=== PATIENT | female | born 1960 | race Caucasian/White ===

== ENCOUNTER 2023-09-02 10:35 | Emergency (ER) | payer OTHER, SELFPAY ==
[2023-09-02 10:46] VITALS: BP 109/82
--- NOTE | 2023-09-02 11:51 | ED.GENMED ---
History of Present Illness
General
Chief Complaint: Musculo-Skeletal Complaint
Time Seen by Provider: 09/02/23 11:37
Travel History
Have you had any contact with someone who has COVID-19?: No
Do you have any symptoms of coronavirus? Fever > 100 degrees, chills, cough, shortness of breath, sore throat, loss of taste or smell, muscle aches, or headache?: No
History of Present Illness
History of Present Illness:
63-year-old female presents to the emergency department for evaluation of left knee pain after a fall. She slipped and fell onto a flexed left knee. She is able to ambulate. States the pain is improved however she is concerned due to a patellar
fracture last year
Past History
Past History
ED Past Medical History: COPD (Emphysema), Other (Sepsis with pneumonia, raynaud syndrome) and Other (UTI)
ED Past Surgical History: Orthopedic
Social History
Tobacco: Smoker
Alcohol: None
Drug: None
Personal:
Living: with family
Family History
Family History: Other (nc)
Review of Systems
Review of Systems
Allergies reviewed?: Yes
All Other Systems: ROS reviewed and negative except as documented in HPI and ROS
Phy Exam
Physical Exam
Physical Exam:
GEN: Well appearing, NAD, WDWN
HEENT: Oral mucosa moist, no scleral icterus
Cardiac: Regular rate
Lung: No respiratory distress, no tachypnea
MSK: No gross deformity or injuries. Moderate left knee swelling that the patient reports is baseline. No focal patellar tenderness. There is mild tenderness to the lateral tibial plateau with no gross deformity, patient ambulates steadily
Skin: Good color, no pallor or jaundice, no rashes
Neuro: AO x3, moves all extremities freely
Psych: Calm, cooperative
Course
Orders/Labs/Results
Orders:
Orders
09/02/23 10:54
Knee, Left 4 or More Views [CR Knee - Left 4 Or More View*] Urgent
Comment:
Reason For Exam: pain and swelling
Vital Signs
Initial and Last Documented VS:
Initial Vital Signs
Temp Pulse Resp BP Pulse Ox
98.8 F 75 20 109/82 95
09/02/23 10:46 09/02/23 10:46 09/02/23 10:46 09/02/23 10:46 09/02/23 10:46
Last Documented Vital Signs
Temp Pulse Resp BP Pulse Ox
98.8 F 75 20 109/82 95
09/02/23 10:46 09/02/23 10:46 09/02/23 10:46 09/02/23 10:46 09/02/23 10:46
MDM/Problems Addressed
MDM/Problems Addressed:
X-ray shows a subtle patellar irregularity that I feel is most likely postsurgical in nature, patient ambulate steadily, discussed supportive care and Ortho follow-up if not improving
*Critical Care Note
Total Time (30-74mins, 75-104mins- exclusive of procedures): Not Applicable
ED Attending Note
-
Portions of this chart may have been created with voice recognition software.� Occasional wrong word or��sound alike� substitutions may have occurred due to the inherent limitations of voice recognition software.
Discharge Plan
Departure
Patient Disposition: Home (Routine Discharge)
Date of Disposition: 09/02/23
Time of Disposition: 11:52
Patient with high blood pressure during this ER visit?: No
Discharge Problem:
Contusion of left knee
Instructions: Knee Sprain (DC)
Prescriptions:
No Action
ascorbic acid (vitamin C) [Vitamin C] 500 MG tablet
500 mg PO DAILY
pregabalin [Lyrica] 150 MG capsule
150 mg PO BID
cranberry illr-A-qshxzves coag [Dycxpjnuq-Buccvonnz-Gjtguwb C] 1 EACH tablet
1 ea PO DAILY
trazodone 100 MG tablet
100 mg PO HS
clonazepam 1 MG tablet
1 mg PO DAILYPRN PRN (Reason: anxiety)
omeprazole 40 MG capsule,delayed release(DR/EC)
40 mg PO DAILY
calcium carbonate [Oyster Shell Calcium 500] 500 MG tablet
500 mg PO DAILY
hydrocodone-acetaminophen 1 TABLET tablet
1 tab PO Q6HPRN PRN (Reason: pain)
cholecalciferol (vitamin D3) [Vitamin D3] 400 UNITS tablet
400 units PO DAILY
escitalopram oxalate 20 MG tablet
20 mg PO DAILY
cyclobenzaprine [Fexmid] 7.5 MG tablet
7.5 mg PO TIDPRN PRN (Reason: spasm)
multivitamin with folic acid [Tab-A-Mendez] 1 TABLET tablet
1 tab PO DAILY
oxycodone myristate [Xtampza ER] 27 MG cap,sprinkl,ER12hr(DONT CRUSH)
27 mg PO BID
polyethylene glycol 3350 17 GRAMS powder in packet
17 grams PO DAILY 0RF
nicotine 21 MG patch 24 hour
21 mg transdermal DAILY 0RF
Referrals:
Sharon De La Cruz CRNP [Family Provider] -
Interventions
Interventions:
*Risk Screen - Suicide Last Done: 09/02/23 11:35
*General Assessment Last Done: 09/02/23 11:35
*Neglect/Abuse Screening Last Done: 09/02/23 11:35
ED- Fall Risk Assessment Last Done: 09/02/23 11:35
*ED COVID-19 Vaccine History Last Done: 09/02/23 11:35
*Nursing Disposition Last Done: 09/02/23 11:56
ED-Musculoskeletal Assessment Last Done: 09/02/23 11:35
Discharge Date and Time
Discharge Date/Time: 09/02/23 11:56
--- NOTE | 2023-09-02 11:54 | EDRN ---
Discharge instructions given to patient by Oh Lamar PA-C. Ambulated with steady gait to the [facility].
== END 2023-09-02 11:56 | disposition home or self-care (01) ==
LOC: EMR 10:35
PROVIDERS: EMERGENCY PHYSICIAN Emergency Medicine; FAMILY PHYSICIAN Nurse Practitioner Family
DX: S80.02XA Contusion of left knee, initial encounter (principal); W01.0XXA Fall on same level from slipping, tripping and stumbling without subsequent striking against object, initial encounter; J43.9 Emphysema, unspecified; I73.00 Raynaud's syndrome without gangrene; F17.200 Nicotine dependence, unspecified, uncomplicated; Z87.440 Personal history of urinary (tract) infections
CPT/HCPCS: 99283; 73564

== ENCOUNTER → 2023-09-07 09:33 | Outpatient (REF) | payer OTHER, SELFPAY | LOC: MRI 3T 09:33 | PROVIDERS: ATTENDING PHYSICIAN Psychiatry & Neurology Neurology; FAMILY PHYSICIAN Nurse Practitioner Family | DX: R41.89 Other symptoms and signs involving cognitive functions and awareness (principal) | CPT/HCPCS: 70553; A9575 ==

== ENCOUNTER → 2023-10-17 08:06 | Outpatient (REF) | payer OTHER, SELFPAY | LOC: RAD 08:06 | PROVIDERS: ATTENDING PHYSICIAN Psychiatry & Neurology Neurology; FAMILY PHYSICIAN Nurse Practitioner Family | DX: R13.10 Dysphagia, unspecified (principal) | CPT/HCPCS: 74230; 92611 ==

== ENCOUNTER 2023-12-15 13:42 | Emergency (ER) | payer OTHER, SELFPAY ==
[2023-12-15 13:44] VITALS: BP 110/68
[2023-12-15 14:36] VITALS: BP 91/74
[2023-12-15 15:11] LABS: % Basophils 0.3 % (0-2); % Eosinophils 0.1 % (0-6); % Immature Granulocytes 1.3 % (0-0.5); % Lymphocytes 5.6 % (20.5-51.1); % Monocytes 4.8 % (1.7-9.3); % Neutrophils 87.9 % (42.2-75.2); Absolute Basophils 0.1 10^3/uL (0-0.2); Absolute Immature Granulocytes 0.3 10^3/uL (0-0.05); Absolute Lymphocytes 1.2 10^3/uL (1.2-3.4); Absolute Neutrophils 18.5 10^3/uL (1.4-6.5); Hemoglobin 13.3 g/dL (12.0-16.0); Mean Corp Hgb Conc. 33.3 g/dL (33.0-37.0); Mean Corpuscular Hgb 31.4 pg (27.0-31.0); Mean Corpuscular Volume 94.6 fL (81.0-99.0); Nucleated Red Blood Cells % 0 %; Platelet Count 304 10^3/uL (130-400); Red Blood Cell Count 4.23 10^6/uL (4.20-5.40); Red Cell Dist. Width 12.2 % (11.5-14.5)
--- NOTE | 2023-12-15 15:22 | ED.GENMED ---
History of Present Illness
General
Chief Complaint: Breathing Problem
Source: patient and family (daughter Akilah Graham)
Exam Limitations: dementia
Time Seen by Provider: 12/15/23 15:02
Nursing documentation reviewed up to this point in time: agreed with
Travel History
Have you had any contact with someone who has COVID-19?: No
Do you have any symptoms of coronavirus? Fever > 100 degrees, chills, cough, shortness of breath, sore throat, loss of taste or smell, muscle aches, or headache?: No
History of Present Illness
History of Present Illness:
63-year-old female presents emergency department due to worsening shortness of breath, oxygen saturation 88 to 92%. Urgent care concern for pneumonia and sent to emergency department. 10 days ago patient was given cefpodoxime and prednisone 20 mg
for 5 days. History of COPD. No fevers.
Past History
Past History
ED Past Medical History: COPD (Emphysema), Other (Sepsis with pneumonia, raynaud syndrome) and Other (UTI, dementia)
ED Past Surgical History: Orthopedic
Social History
Tobacco: Smoker
Alcohol: None
Drug: None
Personal:
Living: with family
Family History
Family History: Other (nc)
Review of Systems
Review of Systems
Allergies reviewed?: Yes
All Other Systems: Not applicable
Constitutional: Reports no symptoms; Denies fever
EENT: Reports no symptoms
Respiratory: Reports cough and trouble breathing
Cardiac: Reports no symptoms
ABD/GI: Reports no symptoms
: Reports no symptoms
Musculoskeletal: Reports no symptoms
Skin: Reports no symptoms
Neurological: Reports no symptoms
Endocrine: Reports no symptoms
Hematologic/Lymphatic: Reports no symptoms
Phy Exam
Physical Exam
Physical Exam:
Physical Exam
General: Afebrile
Neck: supple. no meningeal signs. normal posterior pharynx
Heart: s1/s2 regular rate and rhythm, no murmur. equal radial
pulses.
HEENT: Pupils equal round reactive to light, EOMI
Lungs: Decreased breath sounds at bases bilaterally
Abdomen: normal bowel sounds. not tender. no CVAT
Neuro: alert and oriented. no focal neurological deficits cranial nerves II through XII intact
Skin: no rash
Psychiatric: well kept. interactive and cooperative
Extremities: no edema. no calf tenderness. negative homans. good distal pulses
Scores
Heart Failure Risk
Heart Failure Risk Score: Not Applicable
Course
Orders/Labs/Results
Orders:
Orders
12/15/23 13:50
Chest [CR Chest - 2 Views ] Urgent
Comment:
Reason For Exam: SOB
12/15/23 15:05
Complete Blood Count/With Diff Urgent
Comprehensive Metabolic Panel Urgent
12/15/23 15:20
Dexamethasone Sod Phosphate [Decadron] 10 mg IV NOW STA
Ipratropium/Albuterol Sulfate [Duoneb] 3 ml INH R NOW STA
12/15/23 16:04
Ipratropium/Albuterol Sulfate [Duoneb] 3 ml INH R NOW STA
Abnormal Lab Results
12/15/23
15:05
WBC 21.0 H 10^3/uL
(4.8-10.8)
MCH 31.4 H pg
(27.0-31.0)
Abs Immat Gran (auto) 0.3 H 10^3/uL
(0-0.05)
Absolute Neuts (auto) 18.5 H 10^3/uL
(1.4-6.5)
Absolute Monos (auto) 1.0 H 10^3/uL
(0.1-0.6)
Immature Gran % 1.3 H %
(0-0.5)
Neutrophils % 87.9 H %
(42.2-75.2)
Lymphocytes % 5.6 L %
(20.5-51.1)
Creatinine 0.5 L mg/dL
(0.6-1.0)
Glucose 111 H mg/dl
(70-99)
12/15/23 15:05
12/15/23 15:05
Vital Signs
Initial and Last Documented VS:
Initial Vital Signs
Temp Pulse Resp BP Pulse Ox
98.7 F 86 20 110/68 93
12/15/23 13:44 12/15/23 13:44 12/15/23 13:44 12/15/23 13:44 12/15/23 13:44
Last Documented Vital Signs
Temp Pulse Resp BP Pulse Ox
98.7 F 76 14 91/74 95
12/15/23 13:44 12/15/23 14:45 12/15/23 14:45 12/15/23 14:36 12/15/23 14:49
MDM/Problems Addressed
Differential Diagnosis Includes:
Pneumonia, COPD exacerbation
MDM/Problems Addressed:
63-year-old female with COPD exacerbation, no signs of pneumonia. Leukocytosis, likely from prednisone use. Stable for discharge. Treat with course of prednisone, follow-up with primary care and pulmonology. Return precautions given
Chronic conditions affecting care: COPD
Acute Exacerbation and/or Progression of Chronic Illness: COPD
*Radiology
Radiology exam reviewed: radiology read reviewed (Chest x-ray shows hyperinflation, otherwise clear without signs of edema or infiltrate)
*Pulse Oximetry
Patient hypoxic: no
*EKG
Interpreted by ED Provider?: NA
*Gas Booster Engineer Interpretation
Rate: normal
Interpretation: normal
Heart Rate: 78
Rhythm: sinus
*Critical Care Note
Total Time (30-74mins, 75-104mins- exclusive of procedures): Not Applicable
Data Reviewed
Review of Other/Old Records Reveals: Radiology Studies (CT chest no signs of nodule or pneumonia in September 2018)
Source: records
Patient Management
Social determinants of health affecting care: Living situation and Substance abuse (Tobacco)
Escalation/DeEscalation of care consider admission/obs:
Admit not indicated
ED Attending Note
-
Portions of this chart may have been created with voice recognition software.� Occasional wrong word or��sound alike� substitutions may have occurred due to the inherent limitations of voice recognition software.
Discharge Plan
Departure
Patient Disposition: Home (Routine Discharge)
Date of Disposition: 12/15/23
Time of Disposition: 16:05
Patient with high blood pressure during this ER visit?: No
Condition: Good
Discharge Problem:
Acute exacerbation of chronic obstructive pulmonary disease
Instructions: Exacerbation of COPD (DC)
Prescriptions:
New
prednisone 50 mg tablet
50 mg PO DAILY Qty: 5 0RF
No Action
ascorbic acid (vitamin C) [Vitamin C] 500 MG tablet
500 mg PO DAILY
pregabalin [Lyrica] 150 MG capsule
150 mg PO BID
cranberry gmzz-T-csyqrxfq coag [Ifltkrkuh-Eaupqimgw-Teaadus C] 1 EACH tablet
1 ea PO DAILY
trazodone 100 MG tablet
100 mg PO HS
clonazepam 1 MG tablet
1 mg PO DAILYPRN PRN (Reason: anxiety)
omeprazole 40 MG capsule,delayed release(DR/EC)
40 mg PO DAILY
calcium carbonate [Oyster Shell Calcium 500] 500 MG tablet
500 mg PO DAILY
hydrocodone-acetaminophen 1 TABLET tablet
1 tab PO Q6HPRN PRN (Reason: pain)
cholecalciferol (vitamin D3) [Vitamin D3] 400 UNITS tablet
400 units PO DAILY
escitalopram oxalate 20 MG tablet
20 mg PO DAILY
cyclobenzaprine [Fexmid] 7.5 MG tablet
7.5 mg PO TIDPRN PRN (Reason: spasm)
multivitamin with folic acid [Tab-A-Mendez] 1 TABLET tablet
1 tab PO DAILY
oxycodone myristate [Xtampza ER] 27 MG cap,sprinkl,ER12hr(DONT CRUSH)
27 mg PO BID
polyethylene glycol 3350 17 GRAMS powder in packet
17 grams PO DAILY 0RF
nicotine 21 MG patch 24 hour
21 mg transdermal DAILY 0RF
Referrals:
Sharon De La Cruz CRNP [Family Provider] -
Arya Encinas MD [Active] - Call in 1-3 days for appt
Interventions
Interventions:
*Risk Screen - Suicide Last Done: 12/15/23 13:46
*General Assessment Last Done: 12/15/23 13:46
*ED COVID-19 Vaccine History Last Done: 12/15/23 13:46
ED- Pulmonary Assessment Last Done: 12/15/23 14:49
Discharge Date and Time
Print Language: FRENCH
[2023-12-15 15:35] LABS: ALT (SGPT) 24 U/L (0-35); AST (SGOT) 31 U/L (14-36); Albumin 3.9 g/dl (3.5-5.0); Alkaline Phosphatase 88 U/L (38-126); Blood Urea Nitrogen 13 mg/dl (7-17); Calcium 9.4 mg/dl (8.4-10.2); Carbon Dioxide 29 mmol/L (22-30); Chloride 99 mmol/L (98-107); Glucose 111 mg/dl (70-99); Potassium 4.1 mmol/L (3.5-5.1); Sodium 135 mmol/L (135-145); Total Bilirubin 0.3 mg/dl (0.2-1.3); Total Protein 6.5 g/dl (6.3-8.2); eGFR > 60.00
[2023-12-15] MEDS: DECADRON 10 MG IV (15:45)
[2023-12-15] MEDS: DUONEB 3 ML INH ×2 (15:45→16:10)
== END 2023-12-15 16:40 | disposition home or self-care (01) ==
LOC: EMR 13:42
PROVIDERS: Emergency Medicine; EMERGENCY PHYSICIAN Emergency Medicine; FAMILY PHYSICIAN Nurse Practitioner Family
DX: J44.1 Chronic obstructive pulmonary disease with (acute) exacerbation (principal); F17.200 Nicotine dependence, unspecified, uncomplicated
CPT/HCPCS: 99284; 96374; 94640; 71046; 80053; 85025

== ENCOUNTER 2024-02-09 14:34 | Observation (INO) | payer OTHER, SELFPAY ==
[2024-02-09 10:16] VITALS: BP 100/60
[2024-02-09 11:05] VITALS: BMI 20.3
--- NOTE | 2024-02-09 11:06 | CON.NEURO ---
Consultation
Order
Date of Consultation: 02/09/24
Requesting Provider:
Reason for Consult:
Subjective/Objective
Subjective Data
Date of Service: February 09, 2024
Objective Data
Vital Signs
Temp Pulse Resp BP Pulse Ox
36.2 C 72 16 100/60 98
02/09/24 10:16 02/09/24 10:16 02/09/24 10:16 02/09/24 10:16 02/09/24 10:16
Patient Allergies
No Known Allergies Allergy (Verified 02/09/24 10:16)
Medications
-
Home Medications
�Medication �Instructions �Recorded
ascorbic acid (vitamin C) 500 mg 500 mg PO DAILY 02/08/18
tablet (Vitamin C)
cranberry frpm-D-qfdpcgeo coag 450 1 ea PO DAILY 02/08/18
mg-30 mg-50 million cell tablet
(Dgdbgnlzy-Dcsgwigha-Spxmaxa C)
pregabalin 150 mg capsule (Lyrica) 150 mg PO BID 02/08/18
calcium carbonate (Oyster Shell 500 mg PO DAILY 09/24/18
Calcium 500)
cholecalciferol (vitamin D3) 10 400 units PO DAILY 09/24/18
mcg (400 unit) tablet (Vitamin D3)
clonazepam 1 mg tablet 1 mg PO DAILYPRN PRN anxiety 09/24/18
cyclobenzaprine 7.5 mg tablet 7.5 mg PO TIDPRN PRN spasm 09/24/18
(Fexmid)
escitalopram oxalate 20 mg tablet 20 mg PO DAILY 09/24/18
hydrocodone 7.5 mg-acetaminophen 1 tab PO Q6HPRN PRN pain 09/24/18
325 mg tablet
multivitamin with folic acid 400 1 tab PO DAILY 09/24/18
mcg tablet (Tab-A-Mendez)
omeprazole 40 mg capsule,delayed 40 mg PO DAILY 09/24/18
release
oxycodone myristate 27 mg capsule 27 mg PO BID 09/24/18
sprinkle extended release
12hr(DON'T CRUSH) (Xtampza ER)
trazodone 100 mg tablet 100 mg PO HS 09/24/18
nicotine 21 mg/24 hr daily 21 mg transdermal DAILY 09/26/18
transdermal patch
polyethylene glycol 3350 17 gram 17 grams PO DAILY 09/26/18
oral powder packet
prednisone 50 mg tablet 50 mg PO DAILY #5 tabs 12/15/23
Past History
Past History
ED Past Medical History: COPD (Emphysema), Other (Sepsis with pneumonia, raynaud syndrome) and Other (UTI, dementia)
ED Past Surgical History: Orthopedic
Social History
Tobacco: Smoker
Alcohol: None
Drug: None
Personal:
Living: with family
Family History
Family History: Other (Reviewed and noncontributory)
[2024-02-09 11:19] LABS: % Basophils 1.4 % (0-2); % Eosinophils 1.1 % (0-6); % Immature Granulocytes 0.4 % (0-0.5); % Lymphocytes 17.6 % (20.5-51.1); % Monocytes 10.2 % (1.7-9.3); % Neutrophils 69.3 % (42.2-75.2); Absolute Basophils 0.1 10^3/uL (0-0.2); Absolute Eosinophils 0.1 10^3/uL (0-0.7); Absolute Lymphocytes 1.3 10^3/uL (1.2-3.4); Absolute Monocytes 0.7 10^3/uL (0.1-0.6); Hematocrit 33.6 % (37.0-47.0); Hemoglobin 11.3 g/dL (12.0-16.0); Mean Corp Hgb Conc. 33.6 g/dL (33.0-37.0); Mean Corpuscular Hgb 31.2 pg (27.0-31.0); Mean Corpuscular Volume 92.8 fL (81.0-99.0); Mean Platelet Volume 8.4 fL (7.4-10.4); Nucleated Red Blood Cells % 0 %; Platelet Count 256 10^3/uL (130-400); Red Blood Cell Count 3.62 10^6/uL (4.20-5.40); White Blood Cell Count 7.2 10^3/uL (4.8-10.8)
--- NOTE | 2024-02-09 11:19 | ED.GENMED ---
History of Present Illness
General
Chief Complaint: Weakness
Source: patient and family (Daughter)
Time Seen by Provider: 02/09/24 10:30
History of Present Illness
History of Present Illness:
The patient is a 63-year-old female with a past medical history of chronic right-sided back pain and Alzheimer's dementia who was brought in by her daughter after her daughter noticed a left facial droop just prior to arrival. Her daughter reports
that she spent time with her mother yesterday and her left face did not look like that yesterday. The patient reports that she took a new type of marijuana to sleep last night. She reports that the marijuana made her feel so sleepy that she fell
asleep on a toilet seat at around 3 AM this morning. The patient reports that when she woke up a few hours later, she was on the bathroom floor. She noticed that both of her legs felt numb and weak at that time, and she was unable to stand up.
The patient reports that she crawled down the steps to get her for help. She reports that her left leg feels substantially better at this time, however, her right leg still feels weak and numb. The patient contacted her family due to her
leg symptoms, however, it was her daughter who noticed that her left face appears drooped. It is unclear when this droop occurred because the patient had not noticed it herself. The patient does admit to some numbness of the left cheek. She
reports that she also noticed some discharge and dryness of the left eye this morning. She does report that she had Botox administered on her face 2 days ago.
At this time patient complains of numbness of the left cheek as well as worsening numbness and weakness of the right leg. She denies any speech or swallowing issues.
Past History
Past History
ED Past Medical History: COPD (Emphysema), Other (Sepsis with pneumonia, raynaud syndrome) and Other (UTI, dementia)
ED Past Surgical History: Orthopedic
Social History
Tobacco: Former smoker
Alcohol: None
Drug: None and Marijuana
Personal:
Living: with family
Employment: Other
Family History
Family History: Other (nc)
Review of Systems
Review of Systems
Allergies reviewed?: Yes
All Other Systems: ROS reviewed and negative except as documented in HPI and ROS
Constitutional: Reports sleep disturbance
EENT: Reports no symptoms
Respiratory: Reports no symptoms
Cardiac: Reports no symptoms
ABD/GI: Reports no symptoms
: Reports no symptoms
Musculoskeletal: Reports back pain (Chronic right-sided low back pain)
Skin: Reports no symptoms
Neurological: Reports weakness and numbness
Endocrine: Reports no symptoms
Hematologic/Lymphatic: Reports no symptoms
Psychiatric: Reports no symptoms
Phy Exam
Physical Exam
Physical Exam:
Physical Exam
General: no apparent distress, not acutely ill.
Neck: supple. Nontender C-spine
Heart: s1/s2 regular rate and rhythm, no murmur. equal radial pulses.
Lungs: no acute respiratory distress. clear bilaterally
Abdomen: normal bowel sounds. not tender. no CVAT
Neuro: alert and orientedx3. Left facial droop. Weakness of closure of left eye. 5 out of 5 strength in bilateral upper extremities. Mild drifting of left lower extremity, however, able to resist gravity for at least
20 seconds. 4 out of 5 strength of right lower extremity. No saddle anesthesia. Speech sounds normal. Able to follow all commands and answer all questions appropriately
Skin: no rash
Psychiatric: well kept. interactive and cooperative
Extremities: no edema. no calf tenderness. negative homans. good distal pulses
Course
Orders/Labs/Results
Orders:
Orders
02/09/24 10:47
CT Head W/o Iv Contrast Urgent
Comment:
Reason For Exam: L facial weakness
02/09/24 10:48
Electrocardiogram (*1) Urgent
Reason for Study: TIA/Stroke
EKG- Treatment ONCE
02/09/24 11:03
Complete Blood Count/With Diff Urgent
Comprehensive Metabolic Panel Urgent
PTT Urgent
Prothrombin Time Urgent
02/09/24 12:14
0.9% Sodium Chloride 1000 ml [Nss] 1,000 ml IV BOLUS
Abnormal Lab Results
02/09/24
11:03
RBC 3.62 L 10^6/uL
(4.20-5.40)
Hgb 11.3 L g/dL
(12.0-16.0)
Hct 33.6 L %
(37.0-47.0)
MCH 31.2 H pg
(27.0-31.0)
Absolute Monos (auto) 0.7 H 10^3/uL
(0.1-0.6)
Lymphocytes % 17.6 L %
(20.5-51.1)
Monocytes % 10.2 H %
(1.7-9.3)
Creatinine 0.5 L mg/dL
(0.6-1.0)
Glucose 139 H mg/dl
(70-99)
AST 40 H U/L
(14-36)
02/09/24 11:03
02/09/24 11:03
Vital Signs
Initial and Last Documented VS:
Initial Vital Signs
Temp Pulse Resp BP Pulse Ox
97.2 F 72 16 100/60 98
02/09/24 10:16 02/09/24 10:16 02/09/24 10:16 02/09/24 10:16 02/09/24 10:16
Last Documented Vital Signs
Temp Pulse Resp BP Pulse Ox
97.2 F 72 16 100/60 98
02/09/24 10:16 02/09/24 10:16 02/09/24 10:16 02/09/24 10:16 02/09/24 10:16
MDM/Problems Addressed
Differential Diagnosis Includes:
Peripheral nerve palsy causing numbness and weakness of bilateral lower extremities, cauda equina, central stroke, adverse effect of Botox
MDM/Problems Addressed:
Patient presents with acute left facial droop as well as acute numbness and weakness of bilateral legs
*Radiology
Radiology exam reviewed: radiology read reviewed
*Pulse Oximetry
Patient hypoxic: no
*EKG
Interpreted by ED Provider?: Yes
Comparison EKG: changes noted (Flipped T waves lead V2 and V3)
Rate: normal
Rhythm: sinus
[place]: normal axis
Interval: long QT
QRS Pattern: normal QRS
Ischemia: non-specific ST changes
*Respiratory Assistant Interpretation
Rate: normal
Interpretation: normal
Rhythm: sinus
*Critical Care Note
Total Time (30-74mins, 75-104mins- exclusive of procedures): Not Applicable
Data Reviewed
Review of Other/Old Records Reveals: Testing (Swallow study reviewed from 10/13/2023 which showed that patient did have esophageal dysphagia and risk for aspiration)
Source: patient and family (Daughter)
Patient Management
Discussion with other providers: Hospitalist and Other (Dr. Charles Perez evaluated the patient. Feels that patient symptoms are more likely due to her sleeping on the bathroom toilet and peripheral nerve palsy)
Escalation/DeEscalation of care consider admission/obs:
Patient is unable to ambulate. She still has significant weakness and numbness of her right leg.
ED Attending Note
-
Portions of this chart may have been created with voice recognition software.� Occasional wrong word or��sound alike� substitutions may have occurred due to the inherent limitations of voice recognition software.
Discharge Plan
Departure
Patient Disposition: Admit
Date of Disposition: 02/09/24
Time of Disposition: 13:16
Admit to: Med/Surg
Presentation/result/management discussed w/ accepting MD/DO: Hospitalist
Patient with high blood pressure during this ER visit?: No
Condition: Good
Covid-19: Not Applicable
Discharge Problem:
Ambulatory dysfunction, acute left facial droop, acute right leg weakness
Prescriptions:
No Action
ascorbic acid (vitamin C) [Vitamin C] 500 MG tablet
500 mg PO DAILY
Rcjmhvrmu-Zdjvjuujn-Avqnyyc C 1 EACH tablet
1 tab PO DAILY
trazodone 100 MG tablet
100 mg PO HS
clonazepam 1 MG tablet
1 mg PO BIDPRN PRN (Reason: anxiety)
escitalopram oxalate 20 MG tablet
20 mg PO DAILY
multivitamin with folic acid [Tab-A-Mendez] 1 TABLET tablet
1 tab PO DAILY
hydrocodone-acetaminophen 10-325 mg tablet
1 tab PO Q6HPRN PRN (Reason: severe pain)
calcium carbonate [Calcium 600] 600 mg calcium (1,500 mg) Tablet
1,200 mg PO DAILY
estradiol 0.01 % (0.1 mg/gram) Cream
1 g VAGINAL QWEEK
Patient Comments:
02/09/2024, pt. applies once a week and the day varies.
albuterol sulfate 90 mcg/actuation Hfa Aerosol Inhaler
2 puff INHALATION R Q6HPRN PRN (Reason: sob)
nicotine 7 mg/24 hr Patch 24 Hour
1 patch TRANSDERMAL DAILY
Patient Comments:
02/09/2024, pt. currently wearing a patch on her right arm and gets them OTC.
pregabalin 150 mg capsule
150 mg PO BIDPRN PRN (Reason: mild pain)
cyclobenzaprine 7.5 mg Tablet
7.5 mg PO TID PRN (Reason: muscle spasms)
Patient Comments:
02/09/2024, taken within 2 weeks.
Xtampza ER 36 mg Cap,Sprinkl,Er12hr(Dont Crush)
36 mg PO BID
Hair, Skin and Nails (biotin) 10,000 mcg Tablet,Chewable
10,000 mcg PO DAILY
Patient Comments:
02/09/2024, contains 160 mg of inositol.
Botox
1 dose IM [id number]
Patient Comments:
02/09/2024, pt. does not know dose.
Medical Marijuana oil
1 dose PO HSPRN PRN (Reason: sleep)
Patient Comments:
02/09/2024, pt. uses oil form of medical marijuana and takes 1 dose HSPRN for sleep.
Prilosec
1 tab PO DAILY
Patient Comments:
02/09/2024, pt. unsure of strength.
cholecalciferol (vitamin D3)
1 tab PO DAILY
Referrals:
UNKNOWN - PT DOES,NOT KNOW [Family Provider] -
Interventions
Interventions:
*Risk Screen - Suicide Last Done: 02/09/24 10:16
*General Assessment Last Done: 02/09/24 10:16
*Neglect/Abuse Screening Last Done: 02/09/24 10:16
ED- Fall Risk Assessment Last Done: 02/09/24 11:12
*ED COVID-19 Vaccine History Last Done: 02/09/24 11:12
ED- Cardiac Assessment Last Done: 02/09/24 11:12
ED- Neurological Assessment Last Done: 02/09/24 11:12
ED- Pulmonary Assessment Last Done: 02/09/24 11:12
Discharge Date and Time
Print Language: MALAWIAN
--- NOTE | 2024-02-09 11:19 | CON.NEURO ---
Neuro Assessment/Plan
Assessment
Abrupt worsening of function regards to gait and left-sided facial weakness
Most likely a combination of compression of tibial nerves bilaterally by means of compression
Plan
No indication at this time patient would benefit from additional neuroimaging
Physical therapy evaluation and treatment
Likely that the patient's left-sided facial weakness will spontaneously improve within the next several days
Will follow as needed.
Consultation
Order
Date of Consultation: 02/09/24
Requesting Provider: Emergency department provider
Reason for Consult: Ptosis
Subjective/Objective
Subjective Data
Date of Service: February 09, 2024
Right-Handed
Patient previously has been evaluated by my esteemed colleague last in January 2024. The patient has been diagnosed with mild cognitive impairment and subsequently with Alzheimer's disease. She has not tolerated either donepezil or rivastigmine patch.
Prior evaluations have included neuropsychological testing which demonstrated mild cognitive impairment, amnestic type. MRI of brain suggested significant bilateral temporal lobe atrophy. Video swallowing study indicated minimal difficulties in
the vallecula. Patient has had a second opinion regarding her memory loss by a subspecialist in the field of cognition. She has discontinued driving.
The patient returned to this hospital's emergency department with new onset left facial droop and bilateral lower extremity numbness and approximately 10 hours after using a new type of medical marijuana. The patient had fallen asleep on a toilet
bowl for a number of hours leading to bilateral lower extremity weakness which has improved since presentation. Bilateral thighs were numb, left < right. 04:30 awoke and attempted walk unsuccessfully.
Facial numbness started this AM upon awakening when the patient awoke with her left face pressed against a tile floor..
Received botulinum toxin injection 3 days ago.
Objective Data
Vital Signs
Temp Pulse Resp BP Pulse Ox
36.2 C 72 16 100/60 98
02/09/24 10:16 02/09/24 10:16 02/09/24 10:16 02/09/24 10:16 02/09/24 10:16
Patient Allergies
No Known Allergies Allergy (Verified 02/09/24 10:16)
Review of Systems
-
History Source: Patient
All other systems: Reviewed and negative
EENT: Negative Swallowing Difficulty
Respiratory: Negative Trouble Breathing
Cardiac: Negative Chest Pain
Neuro: Negative Dizzy or Headache
Physical Exam
-
General: No Apparent Distress and Appears Stated Age
Eyes: OU Absent Papilledema, Round OU, [place] Conjunctivae and No Ptosis
HEENT: Anicteric and Moist Mucous Membranes
Neck: Full Range of Motion
Respiratory: No Dyspnea
Cardiac: No JVD
GI: Normal Bowel Sounds and Soft
Skin: Unremarkable
Extremities: No Clubbing, No Cyanosis and No Edema
Psych: Intact Judgement/Insight
Extended Neurological Exam
Mood & Affect: Mood Unremarkable and Affect Unremarkable
Attention Span & Concentration: Awake, Alert and Interactive
Memory: Unremarkable
Tremor: Hand Tremor Absent and Head Tremor Absent
Speech: Quality Unremarkable and Quantity Unremarkable
Cranial Nerve II: Left Eye: Pupillary Reactivity Unremarkable, Pupillary Size Unremarkable and Visual Borja Intact
Cranial Nerve II: Right Eye: Pupillary Reactivity Unremarkable, Pupillary Size Unremarkable and Visual Borja Intact
Cranial Nerves III, IV, : Extraocular Movement: Extraocular Movement Full in all Directions
Cranial Nerve VII: Facial Symmetry: Reduced (On the left compared with the right)
Cranial Nerve VIII: Hearing: Unremarkable Hearing to Normal Conversational Volume
Cranial Nerves IX, X: Palate Movement: Palate Elevation Symmetric
Cranial Nerve XI: Shoulder Shrug: Unremarkable
Cranial Nerve XII: Tongue Protusion: Midline
Muscle Strength, Overall: Reduced (4+ out of 5 approximately bilaterally) and Otherwise Intact
Muscle Bulk & Tone: Bulk Unremarkable and Tone Unremarkable
Pronator Drift: No Drift in Upper Extremities
Deep Tendon Reflexes: Trace Throughout
Touch Sensation: Unremarkable
Coordination: Xzzcau-yjgi-qozbpx Testing Unremarkable
Babinski Sign: Absent Bilaterally
Data Reviewed
-
CT Head: Report Reviewed
MRI Head: Report Reviewed
Labs: Report Reviewed
Reviewed with: Physician, Patient and Family
Old Records: Summarized
Medications
-
Home Medications
�Medication �Instructions �Recorded
ascorbic acid (vitamin C) 500 mg 500 mg PO DAILY 02/08/18
tablet (Vitamin C)
cranberry fyan-C-ijnudtoa coag 450 1 ea PO DAILY 02/08/18
mg-30 mg-50 million cell tablet
(Evgxbmtgb-Qjhvxmtxj-Hntnneh C)
pregabalin 150 mg capsule (Lyrica) 150 mg PO BID 02/08/18
calcium carbonate (Oyster Shell 500 mg PO DAILY 09/24/18
Calcium 500)
cholecalciferol (vitamin D3) 10 400 units PO DAILY 09/24/18
mcg (400 unit) tablet (Vitamin D3)
clonazepam 1 mg tablet 1 mg PO DAILYPRN PRN anxiety 09/24/18
cyclobenzaprine 7.5 mg tablet 7.5 mg PO TIDPRN PRN spasm 09/24/18
(Fexmid)
escitalopram oxalate 20 mg tablet 20 mg PO DAILY 09/24/18
hydrocodone 7.5 mg-acetaminophen 1 tab PO Q6HPRN PRN pain 09/24/18
325 mg tablet
multivitamin with folic acid 400 1 tab PO DAILY 09/24/18
mcg tablet (Tab-A-Mendez)
omeprazole 40 mg capsule,delayed 40 mg PO DAILY 09/24/18
release
oxycodone myristate 27 mg capsule 27 mg PO BID 09/24/18
sprinkle extended release
12hr(DON'T CRUSH) (Xtampza ER)
trazodone 100 mg tablet 100 mg PO HS 09/24/18
nicotine 21 mg/24 hr daily 21 mg transdermal DAILY 09/26/18
transdermal patch
polyethylene glycol 3350 17 gram 17 grams PO DAILY 09/26/18
oral powder packet
prednisone 50 mg tablet 50 mg PO DAILY #5 tabs 12/15/23
Past History
Past History
ED Past Medical History: Cancer (Basal cell carcinoma), COPD (Emphysema), GERD, Other (Sepsis with pneumonia, raynaud syndrome, chronic opioid dependence, chronic benzodiazepine dependence, chronic back pain, osteopenia, anorexia) and Other (UTI,
dementia, COVID-19 infection 2021)
ED Past Surgical History: Gynecological (Bilateral tubal ligation), Orthopedic (Left patellar ORIF) and Other (Mohs surgery on top of head)
Social History
Tobacco: Smoker
Alcohol: None
Drug: None
Personal:
Living: with family
Family History
Family History: Other (Reviewed and noncontributory)
[2024-02-09 11:26] LABS: INR 1.03; PT 13.3 Sec (11.4-14.6)
[2024-02-09 11:27] LABS: APTT 31.4 Sec (23.4-35.0)
[2024-02-09 11:30] LABS: ALT (SGPT) 23 U/L (0-35); AST (SGOT) 40 U/L (14-36); Albumin 4.1 g/dl (3.5-5.0); Alkaline Phosphatase 86 U/L (38-126); Blood Urea Nitrogen 10 mg/dl (7-17); Calcium 9.2 mg/dl (8.4-10.2); Carbon Dioxide 27 mmol/L (22-30); Chloride 101 mmol/L (98-107); Estimated Creatinine Clearance 80 ml/min; Glucose 139 mg/dl (70-99); Potassium 3.6 mmol/L (3.5-5.1); Sodium 139 mmol/L (135-145); Total Bilirubin 0.3 mg/dl (0.2-1.3); Total Protein 6.4 g/dl (6.3-8.2); eGFR > 60.00
[2024-02-09] MEDS: NSS 1000 IV ×2 (12:15→16:53)
[2024-02-09 13:00] VITALS: BP 114/66
--- NOTE | 2024-02-09 13:30 | HPS.HSE ---
Family Physician
-
Family Physician: NOT KNOW UNKNOWN - PT DOES
Chief Complaint
-
left facial droop
b/l LE numbness
History of Present Illness
63 year old with PMH for COPD, Raynaud disease, UTI, alzhmiers dementia presented with new onset left facial droop and bilateral lower extremity numbness and approximately 10 hours after using a new type of medical marijuana. The patient had
fallen asleep on a toilet bowl for a number of hours leading to bilateral lower extremity weakness which has improved since presentation. Bilateral thighs were numb. she fell down from toilet and slept on the floor for 2-3 hours. patient was not
able to walk this morning. she can move her extremity but does not have strength to bear weight. daughter noticed left facial droop, and left facial numbness as her left face pressed against the floor..Received botulinum toxin injection 3 days
ago.denied GARCIA,dizzy or syncopal episode. denied fever, chills, chest pain, sob. denied abdominal pain, n,v,d. denied dysuria or hematuria.
CT head with no acute finding. admitting for further management.
Medical History
Past Medical History
Past Medical History: Reports Other
Additional Past Medical History:
vitamin D deficiency
chronic pain syndrome
GERD
Lumbar radiculopathy
insomnia
anxiety
Alzheimer disease
osteopenia
Past Surgical History: Reports Other
Additional Past Surgical History:
left knee surgery
Social History
Tobacco: Former Smoker
Alcohol: None
Drug: None
Personal:
Living: With Family
Family History
Family History: Not pertinent
Allergies / Home Medications
Allergies reflects when Allergies were last updated in [employer] [employer].
Home Medications with original date entered in [employer]
Allergy/Medication List:
Allergies
Allergy/AdvReac Type Severity Reaction Status Date / Time
No Known Allergies Allergy Verified 02/09/24 10:16
Home Medications
ascorbic acid (vitamin C) 500 mg tablet (Vitamin C) 500 mg PO DAILY 02/08/18
cranberry read-Q-mrgkfflv coag 450 mg-30 mg-50 million cell tablet (Upcywbugt-Oyisobjbw-Linmoan C) 1 tab PO DAILY 02/08/18
clonazepam 1 mg tablet 1 mg PO BIDPRN PRN anxiety 09/24/18
escitalopram oxalate 20 mg tablet 20 mg PO DAILY 09/24/18
multivitamin with folic acid 400 mcg tablet (Tab-A-Mendez) 1 tab PO DAILY 09/24/18
trazodone 100 mg tablet 100 mg PO HS 09/24/18
Botox 1 dose IM [id number] 02/09/24
Medical Marijuana 1 dose PO HSPRN PRN sleep 02/09/24
Prilosec 1 tab PO DAILY 02/09/24
albuterol sulfate 90 mcg/actuation aerosol inhaler 2 puff inhalation R Q6HPRN PRN sob 02/09/24
biotin 10,000 mcg chewable tablet (Hair, Skin and Nails (biotin)) 10,000 mcg PO DAILY 02/09/24
calcium carbonate (Calcium 600) 1,200 mg PO DAILY 02/09/24
cholecalciferol (vitamin D3) 1 tab PO DAILY 02/09/24
cyclobenzaprine 7.5 mg tablet 7.5 mg PO TID PRN muscle spasms 02/09/24
estradiol 0.01% (0.1 mg/gram) vaginal cream 1 g vaginal QWEEK 02/09/24
hydrocodone 10 mg-acetaminophen 325 mg tablet 1 tab PO Q6HPRN PRN severe pain 02/09/24
nicotine 7 mg/24 hr daily transdermal patch 1 patch transdermal DAILY 02/09/24
oxycodone myristate 36 mg capsule sprinkle extended release 12hr(DON'T CRUSH) (Xtampza ER) 36 mg PO BID 02/09/24
pregabalin 150 mg capsule 150 mg PO BIDPRN PRN mild pain 02/09/24
Review of Systems
-
Constitutional: Reports No Symptoms
EENT: Reports No Symptoms
Respiratory: Reports No Symptoms
Cardiac: Reports No Symptoms
Abdomen/GI: Reports No Symptoms
: Reports No Symptoms
Musculoskeletal: Reports Other (b/l LE numb, weakness,facial numbness)
Skin: Reports No Symptoms
Neurological: Reports No Symptoms
Endocrine: Reports No Symptoms
Hematologic/Lymphatic: Reports No Symptoms
Psych: Reports No Symptoms
Physical Exam
Vital Signs
Vital Signs
Temp Pulse Resp BP Pulse Ox
97.2 F 63 16 114/66 97
02/09/24 10:16 02/09/24 13:00 02/09/24 13:00 02/09/24 13:00 02/09/24 13:00
Physical Exam
General: Well Developed, Well Nourished and No Apparent Distress
HEENT: NormoCephalic, Moist mucous membranes and Atraumatic
Respiratory: Clear
Cardiac: S1/S2 and Regular Rhythm; No Murmur or Rub
GI: Soft, Non Tender, Non Distended and Normal Bowel Sounds; No Organomegaly
Rectal: Deferred by Provider
Musculoskeletal: No Clubbing, No Cyanosis and No Edema
Skin: No Rash
Neuro: AO x 3 and Nonfocal/grossly intact
Psych: Calm
Laboratory Results
-
02/09/24 11:03
02/09/24 11:03
Laboratory Results
PT 13.3 Sec (11.4-14.6) 02/09/24 11:03
INR 1.03 02/09/24 11:03
APTT 31.4 Sec (23.4-35.0) 02/09/24 11:03
Total Bilirubin 0.3 mg/dl (0.2-1.3) 02/09/24 11:03
AST 40 U/L (14-36) H 02/09/24 11:03
ALT 23 U/L (0-35) 02/09/24 11:03
Alkaline Phosphatase 86 U/L (38-126) 02/09/24 11:03
Data Reviewed
-
CT Scan: Report Reviewed by me
Lab Data: Labs Reviewed by me
Impression/Plan
-
#severe weakness/numbness to right LE likely peripheral never palsy from prolonged sitting on the toilet
-PT/OT consult
-head CT with no acute intracranial abnormality
-EKG with NSR, prolonged QT
#macrocytic anemia
-hgb 11.3
-ctm
#mild cognitive impairment
# COPD
-Not in acute exacerbation
-Albuterol continued
# Anxiety
-Clonazepam continued
-Citalopram continued
#muscle spasm/chronic pain
-Cyclobenzaprine continued
-Hydrocodone continue for pain
-Oxycodone continued
-Lyrica continued
# GERD
-protonix continued
#Insomnia
-trazodone continued
#DVT Prophylaxis
-Lovenox
#CODE status
-full code
[2024-02-09 14:27] VITALS: BP 98/61
[2024-02-09 15:22] LABS: Creatine Phosphokinase 603 U/L (30-135)
[2024-02-09 15:23] VITALS: BMI 20.4
[2024-02-09 15:56] VITALS: BP 116/67
--- NOTE | 2024-02-09 17:47 | PTCARENOTE ---
Patient admitted to room 402-02 from ER. Vital signs stable. NIH 0. Patient oriented times three but has history of Alzheimer's. Patient's daughter at bedside assisting with admission questions. NSS at 75 mls/hour started. Oriented to room, use of
call roa and bed and television controls. Patient verbalizes understanding of teaching and denies questions at this time. Patient resting comfortably in bed at this time.
[2024-02-09] MEDS: LOVENOX 40 MG SC (17:58)
--- NOTE | 2024-02-09 18:48 | W.PN.UPDATE ---
Update Note
Progress Note Update
This note serves as an addendum to the H&P by HONORIO Hardin, on February 09, 2024.
HPI
63 year old with PMH for COPD, Raynaud disease, UTI, alzheimers dementia presented with new onset left facial droop and bilateral lower extremity numbness and approximately 10 hours after using a new type of medical marijuana. The patient had fallen
asleep on her recliner chair, then woke up in the middle of the night to use the bathroom; she then fell asleep on the toilet for a long while, she then woke up and was too tired so slept on the floor in the bathroom on the left side of her face.
She developed numbness in her legs and right leg weakness, as well as a left-sided facial droop and numbness after that. She received botulinum toxin injection 3 days ago on her face.
Physical Exam
General: Well Developed, Well Nourished and No Apparent Distress
HEENT: Normocephalic, Moist mucous membranes
Respiratory: Clear
Cardiac: S1/S2 and Regular Rhythm
GI: Soft, Non Tender, Non Distended and Normal Bowel Sounds
Musculoskeletal: No Cyanosis and No Edema
Skin: Warm. Dry.
Neuro: AAO x 3. Left-Sided facial droop and partial numbness. Bilateral lower extremity weakness, more so on the right.
Psych: Calm
Assessment/Plan
#severe weakness/numbness to right LE likely peripheral never palsy from prolonged sitting on the toilet
-PT/OT consult
-Await spontaneous improvement
-head CT with no acute intracranial abnormality
-EKG with NSR, prolonged QT
-neurology consulted, recommendations appreciated
#macrocytic anemia
-hgb 11.3
-ctm
#mild cognitive impairment
#Alzheimer's Dementia
# COPD
-Not in acute exacerbation
-Albuterol continued
# Anxiety
-Clonazepam continued
-Citalopram continued
#muscle spasm/chronic pain
-Cyclobenzaprine continued
-Hydrocodone continue for pain
-Oxycodone continued
-Lyrica continued
# GERD
-protonix continued
#Insomnia
-trazodone continued
Past Medical History: Cancer (Basal cell carcinoma), COPD (Emphysema), GERD, Other (Sepsis with pneumonia, raynaud syndrome, chronic opioid dependence, chronic benzodiazepine dependence, chronic back pain, osteopenia, anorexia) and Other (UTI,
dementia, COVID-19 infection 2021)
#DVT Prophylaxis
-Lovenox
#CODE status
-full code
[2024-02-09] MEDS: OXYCONTIN (CONTROLLED RELEASE) 40 MG PO (20:18)
[2024-02-09] MEDS: DESYREL 100 MG PO (21:42)
[2024-02-09 23:18] VITALS: BP 117/70
[2024-02-10] MEDS: NSS 1000 IV (06:29)
[2024-02-10 06:47] LABS: Hematocrit 35.1 % (37.0-47.0); Hemoglobin 11.4 g/dL (12.0-16.0); Mean Corp Hgb Conc. 32.5 g/dL (33.0-37.0); Mean Corpuscular Hgb 30.7 pg (27.0-31.0); Mean Corpuscular Volume 94.6 fL (81.0-99.0); Mean Platelet Volume 9.4 fL (7.4-10.4); Platelet Count 226 10^3/uL (130-400); Red Blood Cell Count 3.71 10^6/uL (4.20-5.40); White Blood Cell Count 6.2 10^3/uL (4.8-10.8)
[2024-02-10 07:19] VITALS: BP 127/59
[2024-02-10 07:21] LABS: Blood Urea Nitrogen 6 mg/dl (7-17); Calcium 8.4 mg/dl (8.4-10.2); Carbon Dioxide 27 mmol/L (22-30); Chloride 109 mmol/L (98-107); Creatine Phosphokinase 685 U/L (30-135); Estimated Creatinine Clearance 84 ml/min; Glucose 85 mg/dl (70-99); Potassium 3.9 mmol/L (3.5-5.1); Sodium 140 mmol/L (135-145); eGFR > 60.00
[2024-02-10 07:25] VITALS: BP 121/61
--- NOTE | 2024-02-10 07:30 | PTCARENOTE ---
Pt fell coming out of the bathroom at 0720 this morning. No dizziness, legs just gave out with weakness. Pt was ambulating with assist from 1 staff member and RW, nonslip socks in place. She has a small hematoma (red ecchymotic, intact) of the
posterior right head (no pain), hit bathroom door with head, neuro check and NIHSS completed and no change from previous assessment. Pt reports tenderness of hematoma area but no headache, no blurry vision. She still remains with the numbness of her
right lower leg and left facial droop. She did not loose consciousness. She also has some bruising of her left upper arm (above elbow), no pain, complete ROM of left arm. Vital signs: 98.5, 67, 127/59, RR 18, SpO2@ 94% on RA. Dr. Jasso made
aware of fall via [place] Text. Updated pt and PCT that pt is not to ambulate until seen by PT, using BSC with 2 assist and RW- pt and PCT verbalized understanding. Pt ringing appropriately for assist.
--- NOTE | 2024-02-10 08:00 | W.PN.HOSP.TC ---
Today's Communication/Plan
-
Discharge today
Assessment / Plan
Assessment / Plan
Physical Exam
General: Well Developed, Well Nourished and No Apparent Distress
HEENT: Normocephalic, Moist mucous membranes
Respiratory: CTAB
Cardiac: S1/S2 and Regular Rhythm
GI: Soft, Non Tender, Non Distended and Normal Bowel Sounds
Musculoskeletal: No Cyanosis and No Edema
Skin: Warm. Dry.
Neuro: AAO x 3. Slight Left-Sided facial droop and partial numbness. Strength 4/5 in the RLE and 5/5 in the LLE.
Psych: Calm

Assessment/Plan
#Severe weakness/numbness to right LE - IMPROVING - likely peripheral nerve compression from prolonged sitting on the toilet
#Left Facial Partial Numbness and Left Facial Droop -- likely from sleeping on bathroom floor with left side of face leaning on floor and possibly from recent Botox injection outpatient prior to arrival
-PT/OT consult
-Initial head CT with no acute intracranial abnormality
-EKG with NSR, prolonged QT
-neurology consulted, recommendations appreciated
#Fall on February 10, 2024 with head trauma
#Left Elbow Bruising
-On February 10, 2024, CT Head ordered after patient's fall, but patient clearly stated she does not want the CT Head; patient declined to have a CT Head done today
-Follow-up with PCP
#Normocytic anemia
-Stable, follow-up outpatient
#mild cognitive impairment
#Alzheimer's Dementia
-Follow-up outpatient
# COPD
-Not in acute exacerbation
-Albuterol continued
# Anxiety
-Clonazepam continued
-Citalopram continued
#muscle spasm/chronic pain
-Cyclobenzaprine continued
-Hydrocodone continue for pain
-Oxycodone continued
-Lyrica continued
# GERD
-protonix continued
#Insomnia
-trazodone continued
Cancer (Basal cell carcinoma)
History of Sepsis with pneumonia
History of Raynaud syndrome
Chronic opioid dependence
Chronic benzodiazepine dependence
Chronic back pain
History of Osteopenia
History of UTI
History of COVID-19 infection 2021)
#DVT Prophylaxis
-Lovenox
#CODE status
-full code
More than 30 minutes spent in discharge including
Final examination of the patient
Summarizing hospital stay
Instructions for continuing care to all relevant caregivers
Preparation of discharge records, prescriptions, and referral forms
Total time spent (in minutes): 39
Anticipated Discharge: Today
Subjective/Interval History
-
Date of Service: February 10, 2024
Patient was seen and examined. This morning, patient's nurse said patient fell coming out of the bathroom due to lower extremity weakness. She hit her head on the bathroom door. Patient clearly stated to me and her nurse that she does not want any
CT imaging of her head. She reported that her right leg weakness has significantly improved and her left facial numbness has improved as well.
Objective Data
-
Labs:
Laboratory Results
02/10/24
05:51
WBC 6.2
Hgb 11.4 L
Hct 35.1 L
Plt Count 226
Sodium 140
Potassium 3.9
Chloride 109 H
Carbon Dioxide 27
BUN 6 L
Creatinine 0.5 L
Glucose 85
Calcium 8.4
Vital Signs:
Vital Signs
Temp Pulse Resp BP Pulse Ox
98.5 F 67 18 127/59 94
02/10/24 07:19 02/10/24 07:19 02/10/24 07:19 02/10/24 07:19 02/10/24 07:19
I&O
02/09/24 02/10/24 02/11/24
06:59 06:59 06:59
Intake Total 2089
Output Total 300 / 300
Balance 1789 / 1789
[2024-02-10] MEDS: LEXAPRO 20 MG PO (08:27)
[2024-02-10] MEDS: NICODERM TRANSDERMAL 7 MG TRANSDERM (08:27)
[2024-02-10] MEDS: VITAMIN D3 (cholecalciferol) 25 MCG PO (08:29)
[2024-02-10] MEDS: OXYCONTIN (CONTROLLED RELEASE) 40 MG PO (08:29)
[2024-02-10] MEDS: PROTONIX 40 MG PO (08:29)
[2024-02-10] MEDS: OSCAL CAL 500 1000 MG PO (08:29)
--- NOTE | 2024-02-10 12:00 | PTCARENOTE ---
Pt refusing to have CT Head done post fall this morning. Pt does not feel like it is necessary. Dr. Jasso aware that pt is refusing CT scan.
[2024-02-10 12:10] VITALS: BP 129/62; PULSE 57; O2SAT 94
[2024-02-10 12:41] VITALS: BP 129/62; PULSE 59; O2SAT 95
[2024-02-10 15:20] VITALS: BP 128/63
[2024-02-10] MEDS: LYRICA 150 MG PO (15:20)
--- NOTE | 2024-02-10 16:38 | W.DS.TRANS ---
DC Summary - [facility]
-
Discharge Instructions:
Discharge Diagnosis/Procedures #Severe weakness/numbness to right LE -
IMPROVING - likely peripheral nerve compression
from prolonged sitting on the toilet
#Left Facial Partial Numbness and Left Facial
Droop -- likely from sleeping on bathroom floor
with left side of face leaning on floor and
possibly from recent Botox injection outpatient
prior to arrival
#Fall on February 10, 2024 with head trauma
#Left Elbow Bruising
#Normocytic anemia
#Mild cognitive impairment
#Alzheimer's Dementia
#COPD
#Anxiety
#Muscle spasm/chronic pain
#GERD
#Insomnia
#Cancer (Basal cell carcinoma)
#History of Sepsis with pneumonia
#History of Raynaud syndrome
#Chronic opioid dependence
#Chronic benzodiazepine dependence
#Chronic back pain
#History of Osteopenia
#History of UTI
#History of COVID-19 infection 2021)
Diet As tolerated
Activity Other activity
Additional Activity Until you follow-up with your outpatient primary
care physician and are cleared by your primary
care physician, do not do any activity that
would put you or others at risk of harm, in the
case that you were to become weak and lose
control while doing that activity.
Driving Restrictions Not until seen by your Dr
Instructions:
Stand-Alone Forms:
Changes to Home Medications: No
Discharge Medications:
DC Medications w/original date entered in [employer]
ascorbic acid (vitamin C) 500 mg tablet (Vitamin C) 500 mg PO DAILY Supplement 02/08/18
cranberry fjgc-Z-eukaovca coag 450 mg-30 mg-50 million cell tablet (Dfdzgoggi-Ihgqtfogn-Kocfzpj C) 1 tab PO DAILY Supplement 02/08/18
clonazepam 1 mg tablet 1 mg PO BIDPRN PRN anxiety 09/24/18
escitalopram oxalate 20 mg tablet 20 mg PO DAILY Mental Health/Anxiety 09/24/18
multivitamin with folic acid 400 mcg tablet (Tab-A-Mendez) 1 tab PO DAILY Supplement 09/24/18
trazodone 100 mg tablet 100 mg PO HS Mental Health/Anxiety 09/24/18
Botox 1 dose IM [id number] MUSCLE PARALYZER 02/09/24
Medical Marijuana 1 dose PO HSPRN PRN sleep 02/09/24
Prilosec 1 tab PO DAILY GERD 02/09/24
albuterol sulfate 90 mcg/actuation aerosol inhaler 2 puff inhalation R Q6HPRN PRN sob 02/09/24
biotin 10,000 mcg chewable tablet (Hair, Skin and Nails (biotin)) 10,000 mcg PO DAILY Supplement 02/09/24
calcium carbonate (Calcium 600) 1,200 mg PO DAILY Supplement 02/09/24
cholecalciferol (vitamin D3) 1 tab PO DAILY Supplement 02/09/24
cyclobenzaprine 7.5 mg tablet 7.5 mg PO TID PRN muscle spasms 02/09/24
estradiol 0.01% (0.1 mg/gram) vaginal cream 1 g vaginal QWEEK HORMONE 02/09/24
hydrocodone 10 mg-acetaminophen 325 mg tablet 1 tab PO Q6HPRN PRN severe pain 02/09/24
nicotine 7 mg/24 hr daily transdermal patch 1 patch transdermal DAILY Smoking Cessation 02/09/24
oxycodone myristate 36 mg capsule sprinkle extended release 12hr(DON'T CRUSH) (Xtampza ER) 36 mg PO BID Pain 02/09/24
pregabalin 150 mg capsule 150 mg PO BIDPRN PRN mild pain 02/09/24
Home Medication Changes
Pending Results: No
Total time spent discharging patient (in min): 39
== END 2024-02-10 18:11 | disposition home or self-care (01) ==
LOC: 4 EAST ACU 14:34
PROVIDERS: Registered Nurse; ADMITTING PHYSICIAN Hospitalist; EMERGENCY PHYSICIAN Emergency Medicine; OTHER PHYSICIAN Psychiatry & Neurology Neurology
DX: R53.1 Weakness (principal); R20.0 Anesthesia of skin; R29.810 Facial weakness; W18.11XA Fall from or off toilet without subsequent striking against object, initial encounter; Y93.89 Activity, other specified; Y92.002 Bathroom of unspecified non-institutional (private) residence as the place of occurrence of the external cause; S50.02XA Contusion of left elbow, initial encounter; S09.8XXA Other specified injuries of head, initial encounter; F12.90 Cannabis use, unspecified, uncomplicated; F11.20 Opioid dependence, uncomplicated; F13.20 Sedative, hypnotic or anxiolytic dependence, uncomplicated; M54.89 Other dorsalgia; J43.9 Emphysema, unspecified; I73.00 Raynaud's syndrome without gangrene; G30.9 Alzheimer's disease, unspecified; F02.80 Dementia in other diseases classified elsewhere, unspecified severity, without behavioral disturbance, psychotic disturbance, mood disturbance, and anxiety; M85.80 Other specified disorders of bone density and structure, unspecified site; F41.9 Anxiety disorder, unspecified; G47.00 Insomnia, unspecified; M54.16 Radiculopathy, lumbar region; G89.4 Chronic pain syndrome; K21.9 Gastro-esophageal reflux disease without esophagitis; E55.9 Vitamin D deficiency, unspecified; M62.838 Other muscle spasm; D53.9 Nutritional anemia, unspecified; Z87.01 Personal history of pneumonia (recurrent); Z87.891 Personal history of nicotine dependence; Z86.16 Personal history of COVID-19; Z87.440 Personal history of urinary (tract) infections; Z85.828 Personal history of other malignant neoplasm of skin
CPT/HCPCS: 70450; 80048; 80053; 82550; 85025; 85027; 85610; 85730; 93005; 96360; 97162; 97166; 97530; 99285; G0378

== ENCOUNTER → 2024-06-18 09:07 | Outpatient (REF) | payer OTHER, SELFPAY | LOC: RAD 09:07 | PROVIDERS: ATTENDING PHYSICIAN Anesthesiology; FAMILY PHYSICIAN Nurse Practitioner Family | DX: M54.16 Radiculopathy, lumbar region (principal) | CPT/HCPCS: 72131 ==

== ENCOUNTER → 2024-11-19 10:36 | Outpatient (REF) | payer MEDICARE, SELFPAY | LOC: WDC 10:36 | PROVIDERS: ATTENDING PHYSICIAN Obstetrics & Gynecology Gynecology; FAMILY PHYSICIAN Family Medicine | DX: Z12.31 Encounter for screening mammogram for malignant neoplasm of breast (principal) | CPT/HCPCS: 77063; 77067 ==

== ENCOUNTER 2025-05-06 11:00 | Outpatient (RCR) | payer MEDICARE, SELFPAY | END 2025-05-06 23:59 | disposition home or self-care (01) | LOC: RST 11:00 | PROVIDERS: ATTENDING PHYSICIAN Nurse Practitioner Adult Health; FAMILY PHYSICIAN Nurse Practitioner Family | DX: R41.89 Other symptoms and signs involving cognitive functions and awareness (principal); R26.89 Other abnormalities of gait and mobility; R41.841 Cognitive communication deficit; Z73.6 Limitation of activities due to disability; R41.840 Attention and concentration deficit; M54.9 Dorsalgia, unspecified; R47.89 Other speech disturbances; R13.10 Dysphagia, unspecified; G30.0 Alzheimer's disease with early onset; F02.80 Dementia in other diseases classified elsewhere, unspecified severity, without behavioral disturbance, psychotic disturbance, mood disturbance, and anxiety | CPT/HCPCS: 96125; 97110; 97162; 97167; 97530; 97535 ==

== ENCOUNTER 2025-06-06 06:54 | Outpatient (RCR) | payer MEDICARE, SELFPAY | END 2025-06-06 23:59 | disposition home or self-care (01) | LOC: RST 06:54 | PROVIDERS: ATTENDING PHYSICIAN Nurse Practitioner Adult Health; FAMILY PHYSICIAN Nurse Practitioner Family | DX: R41.89 Other symptoms and signs involving cognitive functions and awareness (principal); R26.89 Other abnormalities of gait and mobility; Z73.6 Limitation of activities due to disability; M54.9 Dorsalgia, unspecified; R13.10 Dysphagia, unspecified; G30.0 Alzheimer's disease with early onset; F02.80 Dementia in other diseases classified elsewhere, unspecified severity, without behavioral disturbance, psychotic disturbance, mood disturbance, and anxiety | CPT/HCPCS: 92610; 97110; 97112; 97129; 97130; 97530; 97535 ==

== ENCOUNTER 2025-07-04 06:45 | Outpatient (RCR) | payer MEDICARE, SELFPAY | END 2025-07-04 23:59 | disposition home or self-care (01) | LOC: RST 06:45 | PROVIDERS: ATTENDING PHYSICIAN Nurse Practitioner Adult Health; FAMILY PHYSICIAN Nurse Practitioner Family | DX: R41.89 Other symptoms and signs involving cognitive functions and awareness (principal); R26.89 Other abnormalities of gait and mobility; Z73.6 Limitation of activities due to disability; M54.9 Dorsalgia, unspecified; R13.10 Dysphagia, unspecified; G30.0 Alzheimer's disease with early onset; F02.80 Dementia in other diseases classified elsewhere, unspecified severity, without behavioral disturbance, psychotic disturbance, mood disturbance, and anxiety | CPT/HCPCS: 97110; 97112; 97116; 97129; 97130; 97530 ==

== ENCOUNTER 2025-07-07 07:19 | Outpatient (RCR) | payer MEDICARE, SELFPAY | END 2025-07-07 23:59 | disposition home or self-care (01) | LOC: RST 07:19 | PROVIDERS: ATTENDING PHYSICIAN Nurse Practitioner Adult Health; FAMILY PHYSICIAN Nurse Practitioner Family | DX: R26.89 Other abnormalities of gait and mobility (principal); R41.89 Other symptoms and signs involving cognitive functions and awareness; Z73.6 Limitation of activities due to disability; M54.9 Dorsalgia, unspecified; R13.10 Dysphagia, unspecified; G30.0 Alzheimer's disease with early onset; F02.80 Dementia in other diseases classified elsewhere, unspecified severity, without behavioral disturbance, psychotic disturbance, mood disturbance, and anxiety | CPT/HCPCS: 97129; 97130; 97530 ==